=== PATIENT | female | born 1975 | race Caucasian/White ===

== ENCOUNTER → 2016-05-12 | Outpatient (CLI) | payer BC ==
[~2016-05-12] MED LIST: ASA 81MG; ASPIRINEC PO; BACLOFEN10 MG; CALCIUM + D 6001 TA1 PO; CARAFATE1 G PO; CYMBALTA; CYMBALTA30 MG PO; EC-NAPROSYN500 MG; EFFEXOR75 MG PO; HYDROCODON-ACE1 EAC7 PO; IRON PO; LEXAPRO PO; LEXAPRO20 MG PO; LIPITOR20 MG PO; LO-DOSE ASPIRIN81 M1; LORTAB 2.5/5001 TAB PO; MOBIC15 MG PO; NAPROSYN-EC500 M1 PO; NAPROSYN500 MG PO; NAPROXEN500 M1 PO; NEXIUM PO; NO MEDICATIONS; OMEPRAZOLE40 MG PO; PERCOCET5/325 PO; PHENERGAN PO; PREDNISONE PO; PRILOSEC PO; PROPANOLOL; ROBAXIN500 MG PO; SYNTHROID PO; TOPAMAX50 MG PO; TOPROL XL PO; TOPROL XL50 MG; TRAMADOL HCL50 M2; TRAMADOL HCL50 M2 PO; TYLENOL #3 PO; TYLOX1 CAP 5/50 PO; VITAMIN B12; VITAMIN D PO; VITAMIN D2000 UNI1 PO; VITAMIN D5000 UNIT PO; VITAMIN D50000 UNIT DOB; VITAMIN D50000 UNIT PO; VOLTAREN75 MG PO; WALGREEN'S PHARMACY; ZOFRAN ODT4 MG/UDTAB SL; ZOFRANODT PO
--- NOTE | ~2016-05-12 | BD1 ---
[facility] A Service of [facility] & [facility] RADIOLOGY TEXT RESULTS PATIENT: VONDA GAYTAN LOCATION: [facility] : [birth year] UNIT #: [id number] AGE: [address]: Alex Mauricio MD SEX: F ORDER DR: [id number] [place] [id number] O MR#: [id number] Acc #: [id number] NAME: VONDA GAYTAN : 1975 SEX: F STUDY DATE/TIME: 05/12/2016 12:47 UNIT: [facility] ROOM: STUDY DESCRIPTION: Dexa Bone Dens 1+ Site Attending Physician: Alex Mauricio M.D. Referring Physician: Alex Mauricio M.D. Ordering Physician: Alex Mauricio M.D. Primary Care Physician: Guillaume Laboy M.D. MEDICAL IMAGING REPORT This report is preliminary unless electronic signature is present. EXAM Bone density spine hip 05/12/2016 HISTORY Hyperparathyroidism. Nonsmoker. FINDINGS Bone density scanning performed upper 4 lumbar vertebral segments in both proximal femurs in 40.6-year-old 170-pound female. No comparisons. Bone mineral density upper 4 lumbar vertebral segments 1.118 g/cm2 for T-score 0.5 standard deviation below mean for reference population normal young individuals and Z-score 0.9 standard deviations below the mean for age-match population. Proximal left femur total bone mineral density is 1.050 g/cm2 for T-score 0.3 standard deviation above mean for reference population normal young individuals and Z-score 0.3 standard deviations above the mean for age-match population. In the left femoral neck specifically bone mineral density is 1.038 g/cm2 for T-score 0.0 standard deviations from mean for reference population normal young individuals and Z-score 0.2 standard deviations above the mean for age-match population. RIGHT FEMUR: Total bone mineral density 1.091 g/cm2 for T-score 0.7 standard deviations above mean for reference population normal young individuals and Z-score 0.6 standard deviations above the mean for age-match population. In right femoral neck specifically bone mineral density is 0.972 g/cm2 for T-score 0.5 standard deviation below mean for reference population normal young individuals and Z-score 0.3 standard deviations below mean for age-match population. IMPRESSION [facility] A Service of [facility] & [facility] RADIOLOGY TEXT RESULTS PATIENT: VONDA GAYTAN LOCATION: [facility] : [birth year] UNIT #: [id number] AGE: [address]: Alex Mauricio MD SEX: F ORDER DR: 1. Normal bone mineral density in the bilateral proximal femurs and in the upper 4 lumbar vertebral segments overall. Please correlate with clinical risk factors. Continued surveillance recommended as clinically warranted. Dictated by... Sagar Sierra M.D. THIS IS AN ELECTRONICALLY VERIFIED REPORT Sagar Sierra M.D. at 05/15/2016 5:54 PM MAGNOLIA/aida TD: 05/12/2016 21:56 JOB #: [id number] MEDICAL IMAGING REPORT Page 1 of 1
== END | disposition home or self-care (01) ==
LOC: SRAD 12:36
DX: E21.3 Hyperparathyroidism, unspecified (principal); R00.2 Palpitations
CPT/HCPCS: 77080

== ENCOUNTER → 2016-05-15 | Outpatient (CLI) | payer BC | END | disposition home or self-care (01) | LOC: SLAB 14:09 | PROVIDERS: Specialist | DX: E21.3 Hyperparathyroidism, unspecified (principal); R00.2 Palpitations | CPT/HCPCS: 36415; 82340 ==

== ENCOUNTER 2016-08-11 16:01 | Emergency (ER) | payer BC ==
--- NOTE | ~2016-08-11 | CR263 ---
[facility] A Service of [facility] & [facility] / [facility] RADIOLOGY TEXT RESULTS PATIENT: VONDA GAYTAN LOCATION: SED : [birth year] UNIT #: [id number] AGE: [address]: Kaylene Allison SEX: F ORDER DR: [id number] [place] [id number] E MR#: [id number] Acc #: [id number] NAME: VONDA GAYTAN : 1975 SEX: F STUDY DATE/TIME: 08/11/2016 16:18 UNIT: SED ROOM: STUDY DESCRIPTION: CR Toe 2 Views Great Rt Attending Physician: Kaylene Allison P.A.-C. Ordering Physician: Kaylene Allison P.A.-C. Primary Care Physician: Guillaume Laboy M.D. MEDICAL IMAGING REPORT This report is preliminary unless electronic signature is present. EXAM Right great toe, 3 views. INDICATIONS Dropped trailer on her toe today/pain. COMPARISON No comparisons. FINDINGS A comminuted fracture of the tuft of the distal phalanx of the great toe. Associated overlying soft tissue swelling. IMPRESSION Comminuted fracture of the tuft of the distal phalanx of the great toe. Dictated by... Holger Bassett M.D. THIS IS AN ELECTRONICALLY VERIFIED REPORT Holger Bassett M.D. at 08/14/2016 7:32 AM KYLER/darlyn TD: 08/11/2016 23:52 JOB #: [id number] MEDICAL IMAGING REPORT Page 1 of 1
[~2016-08-11 16:01] MED LIST changes: -CYMBALTA; -LO-DOSE ASPIRIN81 M1; -PROPANOLOL
[2016-08-11] MEDS ORDERED: LO-DOSE ASPIRIN81 M1 (16:06)
[2016-08-11] MEDS ORDERED: PROPANOLOL (16:06)
[2016-08-11] MEDS ORDERED: CYMBALTA (16:06)
== END 2016-08-11 18:26 | disposition home or self-care (01) ==
LOC: SED 16:01
DX: S92.421A Displaced fracture of distal phalanx of right great toe, initial encounter for closed fracture (principal); Z88.8 Allergy status to other drugs, medicaments and biological substances; Z79.899 Other long term (current) drug therapy; W18.30XA Fall on same level, unspecified, initial encounter; Y92.009 Unspecified place in unspecified non-institutional (private) residence as the place of occurrence of the external cause
CPT/HCPCS: 12001; 73660; 99283